=== PATIENT | female | born 1935 | race Caucasian/White ===

== ENCOUNTER 2017-01-24 11:21 | Inpatient (IN) | payer MEDICARE ==
[2017-01-24] MEDS ORDERED: ALBUTEROL SULFATE 2.5 MG/3 ML VIAL.NEB IH ONE (11:25)
[2017-01-24] MEDS ORDERED: ALBUTEROL SULFATE 2.5 MG/0.5 ML VIAL.NEB IH ONE (11:44)
[2017-01-24 11:57] LABS: Hematocrit 45.5 % (37.0-47.0); Hemoglobin 14.1 gm/dL (12.5-16.0); Mean Cell Volume 92.1 fl (78-100); Mean Corpuscular Hemoglobin 28.5 pg (27-31); Mean Platelet Volume 10.4 fl (6.0-9.5); Neutrophil # 9.8 K/mm3 (1.3-6.0); Neutrophil % 77.5 % (42-75.0); Platelet Count 213 K/mm3 (150-450); Red Blood Count 4.94 M/mm3 (4.2-5.4); Red Cell Distribution Width 14.4 % (11.5-14.0); White Blood Count 12.7 K/mm3 (4.0-10.5)
--- NOTE | 2017-01-24 12:05 | ERNOTE ---
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 Exam Limitations: no limitations - Immun/Allergies/Home Medications Immunizations: IMMUNIZATION HX Immunizations Up to Date Yes History of Influenza Vaccine Yes Hx Pneumococcal Vaccination Yes Allergies/Adverse Reactions: Allergies codeine Allergy (Mild, Verified 01/24/17 11:38) Hives FROM PRE-OP ORDER SHEET Penicillins Allergy (Mild, Verified 01/24/17 11:38) Hives FROM PRE-OP ORDER SHEET Home Medications: HOME MEDICATIONS Coenzyme Q10/l-Carnitine [Q-Sorb Co Q-10 Plus 100 mg] 200 mg PO DAILY 06/17/13 [ Last Taken Unknown] Furosemide [Lasix] 80 mg PO DAILY 06/17/13 [Last Taken Unknown] Isosorbide Mononitrate [Imdur] 60 mg PO DAILY 06/17/13 [Last Taken Unknown] Levothyroxine Sodium [Synthroid] 150 mcg PO DAILY 06/17/13 [Last Taken Unknown] Lisinopril [Zestril] 10 mg PO DAILY 06/17/13 [Last Taken Unknown] Metoprolol Tartrate [Lopressor] 75 mg PO BID 06/17/13 [Last Taken Unknown] Nitroglycerin 0.4 mg SL PRN PRN 06/17/13 [Last Taken Unknown] Omeprazole [Prilosec] 40 mg PO DAILY 01/21/14 [Last Taken Unknown] Albuterol Sulfate [Proair Hfa] 8.5 gm IH PRN PRN 01/24/17 [Last Taken Unknown] Albuterol Sulfate [Proair Respiclick] 90 mcg IH Q4H PRN 01/24/17 [Last Taken Unknown] Apixaban [Eliquis] 5 mg PO BID 01/24/17 [Last Taken Unknown] Budesonide [Pulmicort Respules] 2 ml IH BID 01/24/17 [Last Taken Unknown] Ipratropium/Albuterol Sulfate [Iprat-Albut 0.5-3(2.5) mg/3 ml] 3 ml IH QID 01/24 [Last Taken Unknown] PARoxetine HCL [Paxil] 20 mg PO DAILY 01/24/17 [Last Taken Unknown] Sotalol HCl [Betapace] 80 mg PO BID 01/24/17 [Last Taken Unknown] - History of Present Illness Narrative: Pt. comes in with c/o Cough, wheezing, SOB, fevers, and upper midiastinal chest pain for two days and states that she worsened yesterday and is weak today. Pt. denies any prehospital treatment, increased swelling joint pain, dizziness or vision changes. Pt. denies any alleviating or aggravating factors. Review of Systems - Review of Systems Constitutional: Present: weakness, fatigue. Absent: recent illness, fever, chills, malaise EYE: Present: no symptoms reported ENT: Present: sore throat. Absent: nose pain, nose congestion, nasal drainage Respiratory: Present: shortness of breath, cough, wheezing Cardiology: Present: chest pain - mediastinal. Absent: palpitations Gastrointestinal/Abdominal: Present: no symptoms reported. Absent: nausea, vomiting, diarrhea, abdominal pain Genitourinary: Present: no symptoms reported Musculoskeletal: Present: no symptoms reported. Absent: back pain, joint pain Neurological: Present: weakness - generalized. Absent: headache, dizziness/ light-headedness, numbness, tingling All Other Systems: All systems neg except as marked - Patient's Past Medical History Patient History - Cardiac/Respiratory: Coronary Heart Disease, CHF - Social History Smoking Status: Never smoker Have you smoked in the past 12 months: No - Immunizations Immunizations Up to Date: Yes Hx Pneumococcal Vaccination: Yes History of Influenza Vaccine: Yes Physical Exam - Physical Exam General Appearance: Present: wd/wn, alert, no apparent distress Eye Exam: Normal inspection: bilateral, PERRL: bilateral, EOMI: bilateral Ears, Nose, Throat: Present: normal ENT inspection, normal pharynx Neck: Present: normal inspection, nontender. Absent: lymphadenopathy (R), lymphadenopathy (L) Respiratory: Present: chest tenderness - mediastinal, respiratory distress, accessory muscle use, decreased breath sounds - bases, rhonchi - throughout, wheezing - exp BUL Cardiovascular/Chest: Present: regular rate, rhythm, no murmur, normal peripheral pulses Gastrointestinal/Abdominal: Present: normal bowel sounds, nontender Back Exam: Present: normal inspection, normal range of motion, no CVA tenderness , no vertebral tenderness Extremity Exam: Present: normal inspection, non-tender, normal range of motion, no edema Neurological Exam: Present: alert, oriented, normal mood/affect, no motor/ sensory deficits Skin Exam: Present: normal color, warm/dry. Absent: pallor, skin rash ED Progress - Date and Time Seen: Date and Time: 01/24/17 12:50 Discussed case with Rosette Kerry and we will admit pt. to observation - Results and Orders Patient's Lab Results:: I have reviewed the patient's lab results. - Vital Signs Patient's Vital Signs:: I have reviewed the patient's vital signs. Vital Signs: Vital Signs 01/24/17 11:25 Temperature 36.5 C Pulse Rate 67 Respiratory 24 H Rate Blood Pressure 159/72 O2 Sat by Pulse 94 Oximetry - EKG EKG: RBBB, other - SR with no acute changes - X-Ray X-Ray #1 X-Ray: chest Interpretation: Reviewed by me X-ray Comments: Technique: Upright frontal and lateral views of the chest were obtained. Findings: The cardiac silhouette is enlarged, but essentially unchanged. There is been a previous median sternotomy. There is questionable right peritracheal prominence The hilum are with in normal limits. Again seen is linear density in the left mid to lower lung zone and right lung base, which most likely reflects atelectasis or scar. The lung sheriff are clear. I do not see evidence for an infiltrate, effusion or pulmonary edema. IMPRESSION: 1. PREVIOUS MEDIAN STERNOTOMY WITH ASSOCIATED ENLARGED CARDIAC SILHOUETTE, ESSENTIALLY UNCHANGED. 2. QUESTIONABLE RIGHT PERITRACHEAL PROMINENCE; THIS CAN BE REEVALUATED WITH CT SCAN. 3. BILATERAL LINEAR SCARRING, UNCHANGED. 4. NO DEFINABLE ACUTE CARDIOPULMONARY PROCESS Departure Clinical Impression: Tracheobronchitis, Weakness COPD (chronic obstructive pulmonary disease) Qualifiers: COPD type: unspecified COPD Qualified Code(s): J44.9 - Chronic obstructive pulmonary disease, unspecified CHF (congestive heart failure) Qualifiers: Congestive heart failure type: unspecified congestive heart failure type Congestive heart failure chronicity: acute on chronic Qualified Code(s): I50.9 - Heart failure, unspecified UTI (urinary tract infection) Qualifiers: Urinary tract infection type: acute cystitis Hematuria presence: without hematuria Qualified Code(s): N30.00 - Acute cystitis without hematuria - Departure Disposition: [facility] Condition: Fair Referrals: Mic Urrutia MD [Primary Care Provider] -
[2017-01-24 12:06] LABS: Urine Bilirubin Negative (NEGATIVE); Urine Blood Negative /ul (NEGATIVE); Urine Ketone Negative (NEGATIVE); Urine Nitrite Negative (NEGATIVE); Urine Protein 15 mg/dL (NEGATIVE); Urine Urobilinogen Normal (NORMAL)
[2017-01-24 12:13] LABS: Urine Appearance Clear; Urine Color Yellow
[2017-01-24 12:14] LABS: Urine Bacteria None Seen; Urine RBC None Seen /hpf (0-5)
[2017-01-24 12:26] LABS: Troponin I Less than 0.017 ng/ml (0.00-0.10)
[2017-01-24 12:28] LABS: ALT 23 U/L (19-67); AST 18 U/L (0-48); Alkaline Phosphatase * 81 U/L (50-170); Anion Gap 12.2 mmol/L (6.8-13.8); BNP * 1556 pg/mL (5-550); BUN/Creatinine Ratio 28.7 (9.0-21.6); Bilirubin, Total 0.6 mg/dL (0.0-1.1); Blood Urea Nitrogen 35 mg/dL (3-23); Ca. Corrected For Albumin 10.2 mg/dL (8.4-10.2); Calcium * 10.5 mg/dL (7.9-10.9); Carbon Dioxide 30.8 mmol/L (24-32.6); Chloride 102 mmol/L (97-106); Glucose * 123 mg/dL (70-110); Sodium 140 mmol/L (132-142); Total Protein 8.3 gm/dL (6.2-8.2)
--- OUTSIDE RECORDS SUMMARY | 2017-01-24 12:32 | XMS REPORT | Continuity of Care Document ---
:1935 Author Organization [facility] ([facility]) Address [address] [place] [address] Phone [phone] Care Team Providers Name Role Phone AspenshrutiyaminiMic Primary Care Provider [phone] Source Comments This disclosure is being made pursuant to the Care Everywhere program, applicable federal and state laws, and may not contain all informaitonavailable regarding this patient.[facility] ([facility]) Active Allergies and Adverse Reactions Allergen Noted Date Severity Reactions Comments Codeine 11/03/2015 Unknown Penicillins 11/03/2015 Unknown Current Medications Prescription Sig. Disp. Refills Start Date End Date Status coenzyme Q10 200 mg 02/05/2012 Active capsule atorvastatin 20 mg take 1 tablet by 02/02/2014 Active tablet ORAL route MWF. isosorbide take 1 tablet 01/28/2012 Active mononitrate 60 mg CR (60MG) by ORAL tablet route every day in the morning. metoPROLol tartrate take 1 tablet 03/30/2008 Active 50 mg tablet (50MG) by ORAL route 2 times every day with meals. nitroglycerin 0.[address] 1 tablet 07/22/2012 Active SL tablet (0.4MG) by Sublingual route at the first sign of an attack; may repeat every 5 minutes, until relief; if pain persists after a total of 3 tablets in 15 minutes, promptmedical attentionis recommended. omeprazole 40 mg take 1 capsule by 02/02/2014 Active enteric coated oral route every capsule day before a meal. ELIQUIS 5 mg tablet Take 1 tablet by 01/02/2016 Active mouth 2 times daily. levothyroxine 150 Take 1 tablet by 02/07/2016 Active mcg tablet mouth daily. lisinopril 10 mg Take 1 tablet by 12/18/2015 Active tablet mouth daily. sotalol 80 mg tablet Take 80 mg by mouth Active 2 times daily. albuterol 90 Use 2 Puffs by Active mcg/Actuation inhalation every 6 inhaler hours as needed. losartan 25 mg Take 25 mg by mouth Active tablet daily. PARoxetine 20 mg 0 03/28/2016 Active tablet FUROSEMIDE 40 mg TAKE 1 TABLET TWICE 180 tablet 3 06/17/2016 Active tablet DAILY Active Problems Problem Noted Date Palpitations 03/29/2016 CAD in [place] artery 02/13/2016 Overview: Formatting of this note may be different from the original. 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: Cath (EF.70, 100% Proximal LAD, 50% Ostial D1, 80% Distal CX, 90% Ostial OM3, 70% Ostial RCA, 80% Distal RCA, 1 Patent Grafts, 100% VG-D1, 100% VG-PDA, Right Dominant, RCA tortuous) - 12/02/2007 CV SURGERY: CV Surgery (3V CABG: UGALDE-LAD, VG-D1, VG-PDA) -1992 CAD (coronary artery disease), autologous vein bypass graft 02/13/2016 Essential hypertension 02/13/2016 Mixed hyperlipidemia 02/13/2016 Overview: Intolerant of statins Statin intolerance 02/13/2016 Typical atrial flutter 02/13/2016 Overview: S/P unsuccessful ablation attempt Social History Tobacco Use Types Packs/Day Years Used Date Never Smoker Last Filed Vital Signs Vital Sign Reading Time Taken Blood Pressure 110/36 05/03/2016 1:54 PM CDT Pulse 52 05/03/2016 1:54 PM CDT Temperature - - Respiratory Rate - - Height 1.499 m (4' 11") 05/03/2016 1:54 PM CDT Weight 98.4 kg (216 lb 14.9 oz) 05/03/2016 1:54 PM CDT Body Mass Index 43.79 05/03/2016 1:54 PM CDT Oxygen Saturation - - Plan of Care Date Type Specialty Providers Description 04/08/2017 Appointment Heart and Vascular Rocael Kim MD Chief Comp: Patient [address] [place] [address] Visit [phone] (Fax) Health Maintenance Due Date Last Done Comments Hepatitis B Vaccine (1 of 3 - Primary Series) 1935 Tdap Vaccine 1945 Lipid Disorder Screening 1952 Td Vaccine 1952 Colonoscopy 12/21/1984 Zoster Vaccine 1994 Osteoporosis Screening (DXA Bone Density) 12/23/1999 Pneumococcal Vaccine (1 of 2 - PCV13) 12/23/1999 Influenza Vaccine: Seasonal Completed Results from Last 3 Months Not on file
[2017-01-24] MEDS ORDERED: NORMAL SALINE 1,000 ML IV ONE (12:36)
[2017-01-24] MEDS ORDERED: LEVOFLOXACIN/D5W 750 MG/150 ML BAG IV ONE (12:36)
[2017-01-24] MEDS ORDERED: FUROSEMIDE 10 MG/ML VIAL IV ONE ×2 (12:36→16:10)
[2017-01-24] MEDS ORDERED: METHYLPREDNISOLONE SOD SUCC/PF 40 MG/ML VIAL IV ONE (12:37)
[2017-01-24] MEDS ORDERED: FUROSEMIDE 10 MG/ML VIAL ONE (12:50)
[2017-01-24] MEDS ORDERED: METHYLPREDNISOLONE SOD SUCC/PF 40 MG/ML VIAL ONE (12:50)
--- OUTSIDE RECORDS SUMMARY | 2017-01-24 13:03 | XMS REPORT | Continuity of Care Document ---
:1935 Author Organization [facility] ([facility]) Address [address] [place] [address] Phone [phone] Care Team Providers Name Role Phone AspenshrutiyaminiMic Primary Care Provider [phone] Source Comments This disclosure is being made pursuant to the Care Everywhere program, applicable federal and state laws, and may not contain all informaitonavailable regarding this patient.[facility] ([facility]) Active Allergies and Adverse Reactions [...] Problem Noted Date Palpitations 03/29/2016 CAD in [place] artery 02/13/2016 Overview: Formatting of this note may be different from the original. 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
[2017-01-24] MEDS ORDERED: METHYLPREDNISOLONE SOD SUCC 80 MG in WATER FOR INJ.,BACTERIOSTATIC 0 ML IV SCH (13:15)
[2017-01-24] MEDS ORDERED: ALBUTEROL SULFATE/IPRATROPIUM 3 ML NEBU IH SCH (13:15)
--- NOTE | 2017-01-24 14:06 | OR ---
Anesthesia Procedure Note - Anesthesia Procedure Note Date of Service: 01/24/17 Narrative: Vital Signs - Last Taken Temp 36.5 C 01/24/17 11:25 Pulse 73 01/24/17 13:54 Resp 19 01/24/17 12:59 BP 165/79 01/24/17 13:54 Pulse Ox 95 01/24/17 12:59 O2 Oxygen Delivery Method Room Air 01/24/17 14:02 ANESTHESIA PROCEDURE NOTE Date of Procedure: 01/24/2017 Time of procedure: 1330. Performed by: DEV August CRNA, MSN Preprocedure diagnosis: Congestive heart failure, lack of venous access. Post procedure diagnosis: Same. Procedure: Venipuncture for IV access. Indications: Ultrasound-guided IV insertion. Findings: See below. Details of the procedure: I was called to the emergency department station 3 for a patient in congestive heart failure who, after multiple attempts, does not have venous access for treatment. An initial scan with the ultrasound showed a viable vein in the right antecubital area. The right arm was then cleaned and prepped with Betadine and alcohol, 0.1 mL of 1% lidocaine solution was injected at the intended IV site. Using ultrasound guidance with sterile ultrasound jelly, the vein was entered with a #20-gauge IV catheter. Catheter was then flushed with saline solution and secured in place. See radiology/ ultrasound report for images. EBL: Minimal. Fluids: N/A. Specimen: N/A. Post procedure condition: The patient tolerated the procedure well. No complications were noted. Thank you for this consultation. Yang Naranjo CRNA, ARNP, MSN 01/24/17 14:06
--- NOTE | 2017-01-24 14:39 | OR ---
Anesthesia Procedure Note - Anesthesia Procedure Note Date of Service: 01/24/17 Narrative: Vital Signs - Last Taken Temp 36.5 C 01/24/17 11:25 Pulse 77 01/24/17 14:05 Resp 16 01/24/17 14:05 BP 165/79 01/24/17 14:05 Pulse Ox 95 01/24/17 14:05 O2 Oxygen Delivery Method Room Air 01/24/17 14:35 ANESTHESIA PROCEDURE NOTE Date of Procedure: 01/24/2017 Time of procedure: 1415. Performed by: Yang Naranjo CRNA, PHOTOENGRAVING PROOFER, MSN Preprocedure diagnosis: Congestive heart failure, lack of IV access. Post procedure diagnosis: Same. Procedure: Venipuncture for IV access. Indications: Ms. Lorenzana is being admitted for congestive heart failure. After several previous attempts at venous access I was requested to start an IV. A # 20-gauge IV was started in the right antecubital with ultrasound guidance and fluid in the medication had been given through that IV however on the most recent flash the patient complained of severe pain which has somewhat subsided. On aspiration attempts no blood was returned. The procedure and risks were explained to her and the left antecubital was then prepped with chlorhexidine. Findings: See below. Details of the procedure: The patient was prepped with chlorhexidine, 0.1 mL of 1% lidocaine solution was injected at the intended IV site. Under ultrasound guidance the left antecubital was cannulated with a 20-gauge IV catheter, flushed and secured in place. The catheter was then once again flushed without any resistance or issues with untoward feeling by the patient. EBL: Minimal. Fluids: N/A. Specimen: N/A. Post procedure condition: The patient tolerated the procedure well. No complications were noted. Thank you for this consultation. Yang Naranjo CRNA, PHOTOENGRAVING PROOFER, MSN
--- NOTE | 2017-01-24 16:34 | HP ---
Chief Complaint - Chief Complaint Date of Service: 01/24/17 Time of Service: 16:08 Chief Complaint: cough/sob/wheezing History of Present Illness: Kina Lorenzana, is an 81-year-old white female, with previous medical history of coronary artery disease status post CABG, hypertension, hyperlipidemia, hypothyroidism, COPD, atrial fibrillation, who 5 days prior to admission started having cough associated with mild shortness of breath. One day prior to admission her shortness of breath got worst and her cough was associated with brownish yellowish phlegm. She denied fever and chills with it but admits to wheezing. She denied any paroxysmal nocturnal dyspnea or orthopnea. She did have a little bit of weight gain however did not notice any edema. She went to the [facility] today and was sent to the emergency room where she patient's chest x- ray showed no acute cardiopulmonary findings enlarged heart, right paratracheal prominence of uncertain etiology. Her EKG showed normal sinus rhythm came. Her white blood cell count was elevated at 12.2. Her urinalysis showed urinary tract infection. She was admitted for COPD exacerbation. - Patient's Past Medical History Patient History - Medical: Cataracts, Depression, Hypothyroidism Patient History - Cardiac/Respiratory: Atrial Fibrillation, Coronary Heart Disease, CHF, COPD, Hyperlipidemia Patient History - Cancer: No Hx of Cancer Patient History - Surgical Procedures: Noncontributory Patient History - Other: None - Family History Mother Family History - Medical: , History Unknown Family History - Cardiac/Respiratory: No pertinent hx, History Unknown Family History - Cancer: No pertinent family hx, History Unknown Father Family History - Medical: , Diabetes Type 2 Family History - Cardiac/Respiratory: No pertinent hx, History Unknown Family History - Cancer: No pertinent family hx, History Unknown - Social History Living Situations: spouse Abuse History: No History of abuse Psych History: Hx of Depression Smoking Status: Former smoker Have you smoked in the past 12 months: No Do you dip or chew tobacco: No Patient requests Smoking Cessation Consult: No Initiate information on Smoking Cessation: No Alcohol Use: none Drug Use: none - Immunizations Immunizations Up to Date: Yes Hx Pneumococcal Vaccination: Yes History of Influenza Vaccine: Yes Review Of Systems (GEN) - Review of Systems Generalized/Overall Review: Present: Weight gain. Absent: Chills, Fever EENTM: Present: No Symptoms Reported Respiratory: Present: Cough, Shortness of Breath, Wheezing. Absent: Orthopnea Cardiac: Absent: Chest Pain, Edema, Palpitations Abdominal: Absent: Nausea, Vomiting Genitourinary: Absent: Urgency, Frequency Musculoskeletal: Present: Joint Pain Immunizations: IMMUNIZATION HX Immunizations Up to Date Yes History of Influenza Vaccine Yes Hx Pneumococcal Vaccination Yes Allergies/Adverse Reactions: Allergies Allergy/AdvReac Type Severity Reaction Status Date / Time codeine Allergy Mild Hives Verified 01/24/17 11:38 Penicillins Allergy Mild Hives Verified 01/24/17 11:38 Home Medications: HOME MEDICATIONS Coenzyme Q10/l-Carnitine [Q-Sorb Co Q-10 Plus 100 mg] 200 mg PO DAILY 06/17/13 [ Last Taken Unknown] Furosemide [Lasix] 80 mg PO DAILY 06/17/13 [Last Taken Unknown] Isosorbide Mononitrate [Imdur] 60 mg PO DAILY 06/17/13 [Last Taken Unknown] Levothyroxine Sodium [Synthroid] 175 mcg PO DAILY 06/17/13 [Last Taken Unknown] Lisinopril [Zestril] 10 mg PO DAILY 06/17/13 [Last Taken Unknown] Metoprolol Tartrate [Lopressor] 75 mg PO BID 06/17/13 [Last Taken Unknown] Nitroglycerin 0.4 mg SL PRN PRN 06/17/13 [Last Taken Unknown] Omeprazole [Prilosec] 40 mg PO DAILY 01/21/14 [Last Taken Unknown] Albuterol Sulfate [Proair Hfa] 8.5 gm IH PRN PRN 01/24/17 [Last Taken Unknown] Albuterol Sulfate [Proair Respiclick] 90 mcg IH Q4H PRN 01/24/17 [Last Taken Unknown] Apixaban [Eliquis] 5 mg PO BID 01/24/17 [Last Taken Unknown] Ipratropium/Albuterol Sulfate [Iprat-Albut 0.5-3(2.5) mg/3 ml] 3 ml IH QID 01/24 [Last Taken Unknown] PARoxetine HCL [Paxil] 20 mg PO DAILY 01/24/17 [Last Taken Unknown] Sotalol HCl [Betapace] 80 mg PO BID 01/24/17 [Last Taken Unknown] Exam - Exam Vital Signs: Vital Signs - Last Taken Temp 37.1 C 01/24/17 15:47 Pulse 80 05/05/17 15:47 Resp 22 H 01/24/17 15:47 BP 173/68 01/24/17 15:47 Pulse Ox 94 01/24/17 15:47 Constitutional: Present: Alert, Oriented x3, Cooperative ENT Exam: Present: hearing grossly normal Eye Exam: bilateral eye: normal inspection, PERRL, EOMI Neck: Present: supple Back Exam: Present: no CVA tenderness Breasts: Present: Exam deferred Respiratory: Present: decreased breath sounds, crackles, wheezing Cardiovascular/Chest: Present: regular rate, rhythm, no JVD, systolic murmur Abdomen: Present: Normal bowel sounds, nontender Extremity: Present: no pedal edema, no calf tenderness Diagnostic Studies: Laboratory Results WBC 12.7 K/mm3 (4.0-10.5) H 01/24/17 11:50 RBC 4.94 M/mm3 (4.2-5.4) 01/24/17 11:50 Hgb 14.1 gm/dL (12.5-16.0) 01/24/17 11:50 Hct 45.5 % (37.0-47.0) 01/24/17 11:50 MCV 92.1 fl (78-100) 01/24/17 11:50 MCH 28.5 pg (27-31) 01/24/17 11:50 MCHC 31.0 g/dl (32-36) L 01/24/17 11:50 RDW 14.4 % (11.5-14.0) H 01/24/17 11:50 Plt Count 213 K/mm3 (150-450) 01/24/17 11:50 MPV 10.4 fl (6.0-9.5) H 01/24/17 11:50 Immature Gran % (Auto) 0.30 % (0.001-0.429) 01/24/17 11:50 Immature Gran # (Auto) 0.04 K/mm3 (0.000-0.0310) H 01/24/17 11:50 Neutrophils % 77.5 % (42-75.0) H 01/24/17 11:50 Lymphocytes % 14.2 % (20-51) L 01/24/17 11:50 Monocytes % 6.3 % (0.0-9) 01/24/17 11:50 Eosinophils % 1.4 % (0.0-3.0) 01/24/17 11:50 Basophils % 0.3 % (0.0-1.0) 01/24/17 11:50 Nucleated RBC % 0.0 k/mm3 (0-1) 01/24/17 11:50 Neutrophils # 9.8 K/mm3 (1.3-6.0) H 01/24/17 11:50 Lymphocytes # 1.8 k/mm3 (1.5-3.5) 01/24/17 11:50 Monocytes # 0.8 k/mm3 (0.0-1.0) 01/24/17 11:50 Eosinophils # 0.2 k/mm3 (0.0-0.7) 01/24/17 11:50 Absolute Basophils 0.0 k/mm3 (0.0-0.1) 01/24/17 11:50 Sodium 140 mmol/L (132-142) 01/24/17 11:50 Plasma Sodium 140 mmol/L (130-142) 01/24/17 11:50 Potassium 5.0 mmol/L (3.4-4.6) H 01/24/17 11:50 Chloride 102 mmol/L (97-106) 01/24/17 11:50 Carbon Dioxide 30.8 mmol/L (24-32.6) 01/24/17 11:50 Anion Gap 12.2 mmol/L (6.8-13.8) 01/24/17 11:50 BUN 35 mg/dL (3-23) H 01/24/17 11:50 Creatinine 1.22 mg/dL (0.4-1.4) 01/24/17 11:50 Est GFR (Non-Af Amer) 45 mL/min (60-130) L 01/24/17 11:50 BUN/Creatinine Ratio 28.7 (9.0-21.6) H 01/24/17 11:50 Random Glucose 123 mg/dL (70-110) H 01/24/17 11:50 Calcium 10.5 mg/dL (7.9-10.9) 01/24/17 11:50 Calcium Adj for Albumin 10.2 mg/dL (8.4-10.2) 01/24/17 11:50 Total Bilirubin 0.6 mg/dL (0.0-1.1) 01/24/17 11:50 AST 18 U/L (0-48) 01/24/17 11:50 ALT 23 U/L (19-67) 01/24/17 11:50 Alkaline Phosphatase 81 U/L (50-170) 01/24/17 11:50 Troponin I Less than 0.017 ng/ml (0.00-0.10) 01/24/17 11:50 B-Natriuretic Peptide 1556 pg/mL (5-550) H 01/24/17 11:50 Total Protein 8.3 gm/dL (6.2-8.2) H 01/24/17 11:50 Albumin 4.0 gm/dl (3.4-5.0) 01/24/17 11:50 Urine Color Yellow 01/24/17 11:34 Urine Appearance Clear 01/24/17 11:34 Urine pH 6.0 pH (5.0-7.0) 01/24/17 11:34 Ur Specific [place] 1.020 SP.GR. (1.005-1.010) 01/24/17 11:34 Urine Protein 15 mg/dL (NEGATIVE) H 01/24/17 11:34 Urine Glucose (UA) Negative mg/dL (NEGATIVE) 01/24/17 11:34 Urine Ketones Negative mg/dL (NEGATIVE) 01/24/17 11:34 Urine Blood Negative /ul (NEGATIVE) 01/24/17 11:34 Urine Nitrate Negative (NEGATIVE) 01/24/17 11:34 Urine Bilirubin Negative mg/dl (NEGATIVE) 01/24/17 11:34 Prot Sulfosalicylic Acd Negative mg/dL (0) 01/24/17 11:34 Urine Urobilinogen Normal EU/dl (NORMAL) 01/24/17 11:34 Ur Leukocyte Esterase 75 /ul (NEGATIVE) H 01/24/17 11:34 Urine RBC None seen /hpf (0-5) 01/24/17 11:34 Urine WBC 5-10 /hpf (0-5) H 01/24/17 11:34 Ur Epithelial Cells 0-5 /hpf (0-5) 01/24/17 11:34 Urine Bacteria None seen (NONE) 01/24/17 11:34 Urine Culture Comments Culture to follow 01/24/17 11:34 Assessment/Plan - Assessment/Plan (1) COPD exacerbation Assessment: will continue with IV antibiotics, IV solumedrol, and breathing treatment. likely acute bronchitis. Problem: Acute (2) UTI (urinary tract infection) Assessment: continue with antibiotic. await C & S Problem: Acute Qualifiers: Urinary tract infection type: acute cystitis Hematuria presence: without hematuria Qualified Code(s): N30.00 - Acute cystitis without hematuria (3) COPD (chronic obstructive pulmonary disease) Problem: Chronic Qualifiers: COPD type: unspecified COPD Qualified Code(s): J44.9 - Chronic obstructive pulmonary disease, unspecified (4) Elevated brain natriuretic peptide (BNP) level Problem: Acute (5) CAD (coronary artery disease) Problem: Chronic Qualifiers: Coronary Disease-Associated Artery/Lesion type: bypass graft [place] vs. transplanted heart: [place] heart Associated angina: without angina Qualified Code(s): I25.810 - Atherosclerosis of coronary artery bypass graft(s) without angina pectoris (6) Hypertension Problem: Chronic Qualifiers: Hypertension type: essential hypertension Qualified Code(s): I10 - Essential (primary) hypertension (7) Hyperlipidemia Problem: Chronic Qualifiers: Hyperlipidemia type: mixed hyperlipidemia Qualified Code(s): E78.2 - Mixed hyperlipidemia (8) Hypothyroidism (acquired) Problem: Chronic (9) Obesity Problem: Acute (10) Afib Problem: Chronic Qualifiers: Atrial fibrillation type: paroxysmal Qualified Code(s): I48.0 - Paroxysmal atrial fibrillation
[2017-01-24] MEDS ORDERED: NITROGLYCERIN 0.4 MG/TAB BTL SL PRN (16:35)
[2017-01-24] MEDS ORDERED: NON-FORMULARY 1 DOSE DOSE (Albuterol Sulfate [Proair Respiclick] 90 MCG) IH PRN (16:40)
[2017-01-24] MEDS: ALBUTEROL SULFATE/IPRATROPIUM 3 ML NEBU IH SCH (18:21)
[2017-01-24] MEDS: METHYLPREDNISOLONE SOD SUCC 80 MG in WATER FOR INJ.,BACTERIOSTATIC 0 ML IV SCH (18:57)
[2017-01-24] MEDS: METOPROLOL TARTRATE 25 MG TABLET PO SCH (20:21)
[2017-01-24] MEDS: SOTALOL HCL 80 MG TABLET PO SCH (20:21)
[2017-01-24] MEDS: APIXABAN 2.5 MG TABLET PO SCH (20:22)
[2017-01-24] MEDS ORDERED: FUROSEMIDE 10 MG/ML VIAL IV SCH (21:00)
[2017-01-24] MEDS ORDERED: APIXABAN 5 MG PO SCH (21:00)
[2017-01-25] MEDS: ALBUTEROL SULFATE/IPRATROPIUM 3 ML NEBU IH SCH ×4 (00:41→18:20)
[2017-01-25] MEDS: METHYLPREDNISOLONE SOD SUCC 80 MG in WATER FOR INJ.,BACTERIOSTATIC 0 ML IV SCH ×4 (01:06→19:07)
[2017-01-25] MEDS: PANTOPRAZOLE SODIUM 40 MG TABLET.EC PO SCH (06:37)
[2017-01-25] MEDS: LEVOTHYROXINE SODIUM 175 MCG TABLET PO SCH (06:37)
[2017-01-25] MEDS: SOTALOL HCL 80 MG TABLET PO SCH ×2 (08:14→21:25)
[2017-01-25] MEDS: ISOSORBIDE MONONITRATE 60 MG TAB.SR.24H PO SCH (08:14)
[2017-01-25] MEDS: FUROSEMIDE 80 MG TABLET PO SCH (08:14)
[2017-01-25] MEDS: METOPROLOL TARTRATE 25 MG TABLET PO SCH ×2 (08:14→21:26)
[2017-01-25] MEDS: APIXABAN 2.5 MG TABLET PO SCH ×2 (08:14→21:25)
[2017-01-25] MEDS: LISINOPRIL 10 MG TABLET PO SCH (08:15)
[2017-01-25] MEDS: PARoxetine HCL 20 MG TABLET PO SCH (08:15)
[2017-01-25 08:33] LABS: Hematocrit 44.7 % (37.0-47.0); Hemoglobin 14.3 gm/dL (12.5-16.0); Mean Cell Volume 89.6 fl (78-100); Mean Corpuscular Hemoglobin 28.7 pg (27-31); Mean Platelet Volume 10.5 fl (6.0-9.5); Neutrophil # 13.8 K/mm3 (1.3-6.0); Neutrophil % 91.1 % (42-75.0); Platelet Count 202 K/mm3 (150-450); Red Blood Count 4.99 M/mm3 (4.2-5.4); Red Cell Distribution Width 14.2 % (11.5-14.0); White Blood Count 15.2 K/mm3 (4.0-10.5)
[2017-01-25 08:42] LABS: Anion Gap 11.9 mmol/L (6.8-13.8); BUN/Creatinine Ratio 27.9 (9.0-21.6); Calcium * 10.5 mg/dL (7.9-10.9); Carbon Dioxide 31.3 mmol/L (24-32.6); Estimated Creat Clear 26.6; Potassium 4.2 mmol/L (3.4-4.6)
[2017-01-25] MEDS ORDERED: OMEPRAZOLE 40 MG PO SCH (09:00)
--- NOTE | 2017-01-25 09:44 | PN ---
Subjective - Date and Time Seen Date: 01/25/17 Time: 09:38 Subjective Narrative: Still feels very tight. Audibly wheezing. Objective - Review of Systems Generalized/Overall Review: Denies: Chills, Fever EENTM: Reports: No Symptoms Reported Respiratory: Reports: Cough, Shortness of Breath, Wheezing Cardiac: Denies: Chest Pain, Edema, Palpitations Abdominal: Denies: Nausea, Vomiting Genitourinary Symptoms: Denies: Urgency, Frequency Musculoskeletal Complaints: Reports: Joint Pain - Vitals Vitals: Last Vital Signs Temp 36.6 C 01/25/17 08:00 Pulse 64 01/25/17 08:15 Resp 19 01/25/17 08:00 BP 135/63 01/25/17 08:15 Pulse Ox 90 01/25/17 08:00 - Abnormal Lab Findings Abnormal Lab Findings: Abnormal Lab Results 01/25/17 01/25/17 Range/Units 08:21 08:21 WBC 15.2 H (4.0-10.5) K/mm3 RDW 14.2 H (11.5-14.0) % MPV 10.5 H (6.0-9.5) fl Immature Gran % (Auto) 0.60 H (0.001-0.429) % Immature Gran # (Auto) 0.09 H (0.000-0.0310) K/mm3 Neutrophils % 91.1 H (42-75.0) % Lymphocytes % 6.6 L (20-51) % Neutrophils # 13.8 H (1.3-6.0) K/mm3 Lymphocytes # 1.0 L (1.5-3.5) k/mm3 Plasma Sodium 143 H (130-142) mmol/L BUN 31 H (3-23) mg/dL Est GFR (Non-Af Amer) 50 L (60-130) mL/min BUN/Creatinine Ratio 27.9 H (9.0-21.6) Random Glucose 194 H D (70-110) mg/dL - Exam Constitutional: Present: Alert, Oriented x3, Cooperative ENT Exam: Present: hearing grossly normal Neck: Present: supple Breasts: Present: Exam deferred Respiratory: Present: decreased breath sounds, crackles, wheezing Cardiovascular/Chest: Present: regular rate, rhythm, no JVD, no murmur Abdomen: Present: Normal bowel sounds, soft, nontender, nondistended Extremity: Present: no pedal edema, no calf tenderness Assessment/Plan - Problems/Diagnosis (1) COPD exacerbation Problem: Acute Narrative: continue with IV antibiotics, IV solumedrol, breathing treatments. (2) UTI (urinary tract infection) Problem: Acute Qualifiers: Urinary tract infection type: acute cystitis Hematuria presence: without hematuria Qualified Code(s): N30.00 - Acute cystitis without hematuria Narrative: continue with IV antibiotics. (3) COPD (chronic obstructive pulmonary disease) Problem: Chronic Qualifiers: COPD type: unspecified COPD Qualified Code(s): J44.9 - Chronic obstructive pulmonary disease, unspecified (4) Elevated brain natriuretic peptide (BNP) level Problem: Acute (5) CAD (coronary artery disease) Problem: Chronic Qualifiers: Coronary Disease-Associated Artery/Lesion type: bypass graft [place] vs. transplanted heart: [place] heart Associated angina: without angina Qualified Code(s): I25.810 - Atherosclerosis of coronary artery bypass graft(s) without angina pectoris (6) Hypertension Problem: Chronic Qualifiers: Hypertension type: essential hypertension Qualified Code(s): I10 - Essential (primary) hypertension (7) Hyperlipidemia Problem: Chronic Qualifiers: Hyperlipidemia type: mixed hyperlipidemia Qualified Code(s): E78.2 - Mixed hyperlipidemia (8) Hypothyroidism (acquired) Problem: Chronic (9) Obesity Problem: Acute (10) Afib Problem: Chronic Qualifiers: Atrial fibrillation type: paroxysmal Qualified Code(s): I48.0 - Paroxysmal atrial fibrillation
[2017-01-25] MEDS ORDERED: LEVOFLOXACIN/D5W 750 MG/150 ML BAG IV SCH (13:15)
[2017-01-25] MEDS ORDERED: LORazepam 0.5 MG TABLET PO ONE (20:10)
[2017-01-25] MEDS ORDERED: LORazepam 0.5 MG TABLET ONE (21:23)
[2017-01-26] MEDS: ALBUTEROL SULFATE/IPRATROPIUM 3 ML NEBU IH SCH ×4 (00:10→18:24)
[2017-01-26] MEDS: METHYLPREDNISOLONE SOD SUCC 80 MG in WATER FOR INJ.,BACTERIOSTATIC 0 ML IV SCH ×2 (01:16→07:34)
[2017-01-26] MEDS: PANTOPRAZOLE SODIUM 40 MG TABLET.EC PO SCH (07:33)
[2017-01-26] MEDS: LEVOTHYROXINE SODIUM 175 MCG TABLET PO SCH (07:33)
[2017-01-26 08:29] LABS: Hematocrit 42.4 % (37.0-47.0); Hemoglobin 13.4 gm/dL (12.5-16.0); Mean Corpuscular Hemoglobin 28.8 pg (27-31); Mean Corpuscular Hgb Conc 31.6 g/dl (32-36); Mean Platelet Volume 10.7 fl (6.0-9.5); Neutrophil # 14.8 K/mm3 (1.3-6.0); Neutrophil % 88.6 % (42-75.0); Platelet Count 226 K/mm3 (150-450); Red Blood Count 4.66 M/mm3 (4.2-5.4); Red Cell Distribution Width 14.6 % (11.5-14.0); White Blood Count 16.7 K/mm3 (4.0-10.5)
[2017-01-26 08:38] LABS: Anion Gap 15.5 mmol/L (6.8-13.8); BUN/Creatinine Ratio 32.8 (9.0-21.6); Calcium * 10.1 mg/dL (7.9-10.9); Carbon Dioxide 29.9 mmol/L (24-32.6); Estimated Creat Clear 23.7; Potassium 4.4 mmol/L (3.4-4.6)
[2017-01-26] MEDS: APIXABAN 2.5 MG TABLET PO SCH ×2 (09:16→20:58)
[2017-01-26] MEDS: METOPROLOL TARTRATE 25 MG TABLET PO SCH ×2 (09:16→20:59)
[2017-01-26] MEDS: LISINOPRIL 10 MG TABLET PO SCH (09:17)
[2017-01-26] MEDS: FUROSEMIDE 80 MG TABLET PO SCH (09:17)
[2017-01-26] MEDS: ISOSORBIDE MONONITRATE 60 MG TAB.SR.24H PO SCH (09:17)
[2017-01-26] MEDS: SOTALOL HCL 80 MG TABLET PO SCH ×2 (09:17→20:57)
[2017-01-26] MEDS: PARoxetine HCL 20 MG TABLET PO SCH (09:17)
[2017-01-26] MEDS: ACETAMINOPHEN 325 MG TABLET PO PRN (09:21)
--- NOTE | 2017-01-26 09:40 | PN ---
Subjective - Date and Time Seen Date: 01/26/17 Time: 09:27 Subjective Narrative: Her abdominal muscles gets painful whenever she coughs. She still is SOB but better. Objective - Review of Systems Generalized/Overall Review: Reports: Weakness. Denies: Chills, Fever EENTM: Reports: No Symptoms Reported Respiratory: Reports: Cough, Shortness of Breath, Wheezing Cardiac: Denies: Chest Pain, Edema, Palpitations Abdominal: Reports: Abdominal Pain. Denies: Nausea, Vomiting Genitourinary Symptoms: Denies: Urgency, Frequency Musculoskeletal Complaints: Reports: Joint Pain - Vitals Vitals: Last Vital Signs Temp 36.8 C 01/26/17 08:00 Pulse 80 01/26/17 09:17 Resp 21 H 01/26/17 08:00 BP 142/55 01/26/17 09:17 Pulse Ox 94 01/26/17 08:00 - Abnormal Lab Findings Abnormal Lab Findings: Abnormal Lab Results 01/26/17 01/26/17 Range/Units 08:22 08:22 WBC 16.7 H (4.0-10.5) K/mm3 MCHC 31.6 L (32-36) g/dl RDW 14.6 H (11.5-14.0) % MPV 10.7 H (6.0-9.5) fl Immature Gran % (Auto) 1.00 H (0.001-0.429) % Immature Gran # (Auto) 0.16 H (0.000-0.0310) K/mm3 Neutrophils % 88.6 H (42-75.0) % Lymphocytes % 7.6 L (20-51) % Neutrophils # 14.8 H (1.3-6.0) K/mm3 Lymphocytes # 1.3 L (1.5-3.5) k/mm3 Plasma Sodium 144 H (130-142) mmol/L Anion Gap 15.5 H (6.8-13.8) mmol/L BUN 41 H (3-23) mg/dL Est GFR (Non-Af Amer) 44 L (60-130) mL/min BUN/Creatinine Ratio 32.8 H (9.0-21.6) Random Glucose 225 H (70-110) mg/dL - Exam Constitutional: Present: Oriented x3, Cooperative ENT Exam: Present: hearing grossly normal Neck: Present: supple Breasts: Present: Exam deferred Respiratory: Present: decreased breath sounds, crackles - siginificantly less, wheezing Cardiovascular/Chest: Present: regular rate, rhythm, no JVD, systolic murmur Extremity: Present: no calf tenderness, pedal edema Assessment/Plan - Problems/Diagnosis (1) COPD exacerbation Problem: Acute Narrative: likely acute bronchitis. continue with present management. (2) UTI (urinary tract infection) Problem: Acute Qualifiers: Urinary tract infection type: acute cystitis Hematuria presence: without hematuria Qualified Code(s): N30.00 - Acute cystitis without hematuria Narrative: NG on UCS . (3) COPD (chronic obstructive pulmonary disease) Problem: Chronic Qualifiers: COPD type: unspecified COPD Qualified Code(s): J44.9 - Chronic obstructive pulmonary disease, unspecified (4) Elevated brain natriuretic peptide (BNP) level Problem: Acute (5) CAD (coronary artery disease) Problem: Chronic Qualifiers: Coronary Disease-Associated Artery/Lesion type: bypass graft [place] vs. transplanted heart: [place] heart Associated angina: without angina Qualified Code(s): I25.810 - Atherosclerosis of coronary artery bypass graft(s) without angina pectoris (6) Hypertension Problem: Chronic Qualifiers: Hypertension type: essential hypertension Qualified Code(s): I10 - Essential (primary) hypertension (7) Hyperlipidemia Problem: Chronic Qualifiers: Hyperlipidemia type: mixed hyperlipidemia Qualified Code(s): E78.2 - Mixed hyperlipidemia (8) Hypothyroidism (acquired) Problem: Chronic (9) Obesity Problem: Acute (10) Afib Problem: Chronic Qualifiers: Atrial fibrillation type: paroxysmal Qualified Code(s): I48.0 - Paroxysmal atrial fibrillation (11) Leukocytosis Problem: Acute Qualifiers: Leukocytosis type: unspecified Qualified Code(s): D72.829 - Elevated white blood cell count, unspecified Narrative: due to steroids and bronchitis.
[2017-01-26] MEDS: LEVOFLOXACIN/D5W 750 MG/150 ML BAG IV SCH (12:19)
[2017-01-26] MEDS: METHYLPREDNISOLONE SOD SUCC 60 MG in WATER FOR INJ.,BACTERIOSTATIC 0 ML IV SCH ×2 (13:46→18:54)
[2017-01-26] MEDS ORDERED: LEVOFLOXACIN/D5W 500 MG/100 ML BAG IV SCH (14:00)
[2017-01-27] MEDS: ALBUTEROL SULFATE/IPRATROPIUM 3 ML NEBU IH SCH ×4 (00:11→18:13)
[2017-01-27] MEDS: METHYLPREDNISOLONE SOD SUCC 60 MG in WATER FOR INJ.,BACTERIOSTATIC 0 ML IV SCH ×2 (00:34→07:32)
[2017-01-27] MEDS: PANTOPRAZOLE SODIUM 40 MG TABLET.EC PO SCH (07:32)
[2017-01-27] MEDS: LEVOTHYROXINE SODIUM 175 MCG TABLET PO SCH (07:32)
--- NOTE | 2017-01-27 08:38 | PN ---
Subjective - Date and Time Seen Date: 01/27/17 Time: 08:35 Subjective Narrative: Feels better but SOB with ambulation. Less wheezy. Objective - Review of Systems Generalized/Overall Review: Denies: Weakness, Chills, Fever EENTM: Reports: No Symptoms Reported Respiratory: Reports: Cough, Shortness of Breath, Wheezing Cardiac: Denies: Chest Pain, Edema, Palpitations Abdominal: Denies: Nausea, Vomiting Genitourinary Symptoms: Denies: Urgency, Frequency Musculoskeletal Complaints: Reports: Joint Pain - Vitals Vitals: Last Vital Signs Temp 36.8 C 01/27/17 07:25 Pulse 63 01/27/17 07:25 Resp 20 01/27/17 07:25 BP 178/73 01/27/17 07:25 Pulse Ox 96 01/27/17 07:25 - Abnormal Lab Findings Abnormal Lab Findings: Abnormal Lab Results 01/26/17 Range/Units 08:22 Plasma Sodium 144 H (130-142) mmol/L Anion Gap 15.5 H (6.8-13.8) mmol/L BUN 41 H (3-23) mg/dL Est GFR (Non-Af Amer) 44 L (60-130) mL/min BUN/Creatinine Ratio 32.8 H (9.0-21.6) Random Glucose 225 H (70-110) mg/dL - Exam Constitutional: Present: Alert, Oriented x3, Cooperative ENT Exam: Present: hearing grossly normal Neck: Present: supple Respiratory: Present: decreased breath sounds, crackles, wheezing Cardiovascular/Chest: Present: regular rate, rhythm, no JVD, systolic murmur Abdomen: Present: Normal bowel sounds, soft, nontender, nondistended Extremity: Present: no pedal edema, no calf tenderness Assessment/Plan - Problems/Diagnosis (1) COPD exacerbation Problem: Acute Narrative: likely Acute bronchitis. follow up CXR. will swithc to oral prednisone. Cotnninue IV antibiotics. (2) UTI (urinary tract infection) Problem: Acute Qualifiers: Urinary tract infection type: acute cystitis Hematuria presence: without hematuria Qualified Code(s): N30.00 - Acute cystitis without hematuria Narrative: no Growth on UCS. (3) COPD (chronic obstructive pulmonary disease) Problem: Chronic Qualifiers: COPD type: unspecified COPD Qualified Code(s): J44.9 - Chronic obstructive pulmonary disease, unspecified (4) Elevated brain natriuretic peptide (BNP) level Problem: Acute (5) CAD (coronary artery disease) Problem: Chronic Qualifiers: Coronary Disease-Associated Artery/Lesion type: bypass graft [place] vs. transplanted heart: [place] heart Associated angina: without angina Qualified Code(s): I25.810 - Atherosclerosis of coronary artery bypass graft(s) without angina pectoris (6) Hypertension Problem: Chronic Qualifiers: Hypertension type: essential hypertension Qualified Code(s): I10 - Essential (primary) hypertension (7) Hyperlipidemia Problem: Chronic Qualifiers: Hyperlipidemia type: mixed hyperlipidemia Qualified Code(s): E78.2 - Mixed hyperlipidemia (8) Hypothyroidism (acquired) Problem: Chronic (9) Obesity Problem: Acute (10) Afib Problem: Chronic Qualifiers: Atrial fibrillation type: paroxysmal Qualified Code(s): I48.0 - Paroxysmal atrial fibrillation (11) Leukocytosis Problem: Acute Qualifiers: Leukocytosis type: unspecified Qualified Code(s): D72.829 - Elevated white blood cell count, unspecified Narrative: due to acute bonchitis and steroids.
[2017-01-27] MEDS ORDERED: predniSONE 20 MG TABLET PO SCH (09:00)
[2017-01-27] MEDS: ISOSORBIDE MONONITRATE 60 MG TAB.SR.24H PO SCH (09:19)
[2017-01-27] MEDS: METOPROLOL TARTRATE 25 MG TABLET PO SCH ×2 (09:20→21:40)
[2017-01-27] MEDS: FUROSEMIDE 80 MG TABLET PO SCH (09:20)
[2017-01-27] MEDS: SOTALOL HCL 80 MG TABLET PO SCH ×2 (09:20→21:39)
[2017-01-27] MEDS: APIXABAN 2.5 MG TABLET PO SCH ×2 (09:21→21:39)
[2017-01-27] MEDS: PARoxetine HCL 20 MG TABLET PO SCH (09:21)
[2017-01-27] MEDS: LISINOPRIL 10 MG TABLET PO SCH (09:21)
[2017-01-27] MEDS: ALBUTEROL SULFATE 2.5 MG/3 ML VIAL.NEB IH PRN (13:20)
[2017-01-27] MEDS: ACETAMINOPHEN 325 MG TABLET PO PRN (13:25)
[2017-01-28] MEDS: ALBUTEROL SULFATE/IPRATROPIUM 3 ML NEBU IH SCH ×4 (00:34→18:25)
[2017-01-28] MEDS: PANTOPRAZOLE SODIUM 40 MG TABLET.EC PO SCH (06:21)
[2017-01-28] MEDS: LEVOTHYROXINE SODIUM 175 MCG TABLET PO SCH (06:22)
[2017-01-28] MEDS: FUROSEMIDE 80 MG TABLET PO SCH (08:48)
[2017-01-28] MEDS: APIXABAN 2.5 MG TABLET PO SCH ×2 (08:48→20:04)
[2017-01-28] MEDS: SOTALOL HCL 80 MG TABLET PO SCH ×2 (08:48→20:04)
[2017-01-28] MEDS: ISOSORBIDE MONONITRATE 60 MG TAB.SR.24H PO SCH (08:48)
[2017-01-28] MEDS: METOPROLOL TARTRATE 25 MG TABLET PO SCH ×2 (08:48→20:03)
[2017-01-28] MEDS: LISINOPRIL 10 MG TABLET PO SCH (08:49)
[2017-01-28] MEDS: PARoxetine HCL 20 MG TABLET PO SCH (08:49)
[2017-01-28] MEDS: predniSONE 20 MG TABLET PO SCH (08:49)
[2017-01-28] MEDS: LEVOFLOXACIN/D5W 750 MG/150 ML BAG IV SCH (11:11)
[2017-01-28 12:02] LABS: Hemoglobin 12.7 gm/dL (12.5-16.0); Mean Cell Volume 90.7 fl (78-100); Mean Corpuscular Hemoglobin 28.8 pg (27-31); Mean Corpuscular Hgb Conc 31.8 g/dl (32-36); Mean Platelet Volume 10.6 fl (6.0-9.5); Neutrophil # 10.8 K/mm3 (1.3-6.0); Neutrophil % 80.5 % (42-75.0); Platelet Count 249 K/mm3 (150-450); Red Blood Count 4.41 M/mm3 (4.2-5.4); Red Cell Distribution Width 14.5 % (11.5-14.0); White Blood Count 13.4 K/mm3 (4.0-10.5)
[2017-01-28 12:22] LABS: Anion Gap 12.2 mmol/L (6.8-13.8); BUN/Creatinine Ratio 40.2 (9.0-21.6); Calcium * 9.9 mg/dL (7.9-10.9); Estimated Creat Clear 26.4; Potassium 4.2 mmol/L (3.4-4.6)
[2017-01-28] MEDS: ACETAMINOPHEN 325 MG TABLET PO PRN ×2 (14:04→20:04)
--- NOTE | 2017-01-28 16:02 | PN ---
Subjective - Date and Time Seen Date: 01/28/17 Time: 15:59 Subjective Narrative: Still coughng , Still wheezing although a little bit better than on admission. Objective - Review of Systems Generalized/Overall Review: Denies: Chills, Fever EENTM: Reports: No Symptoms Reported Respiratory: Reports: Cough, Shortness of Breath, Wheezing Cardiac: Denies: Chest Pain, Edema, Palpitations Abdominal: Denies: Nausea, Vomiting Genitourinary Symptoms: Denies: Urgency, Frequency Musculoskeletal Complaints: Reports: Joint Pain - Vitals Vitals: Last Vital Signs Temp 36.8 C 01/28/17 10:54 Pulse 96 01/28/17 13:41 Resp 20 01/28/17 13:41 BP 148/72 01/28/17 10:54 Pulse Ox 96 01/28/17 13:31 - Abnormal Lab Findings Abnormal Lab Findings: Abnormal Lab Results 01/28/17 01/28/17 Range/Units 11:31 11:48 WBC 13.4 H (4.0-10.5) K/mm3 MCHC 31.8 L (32-36) g/dl RDW 14.5 H (11.5-14.0) % MPV 10.6 H (6.0-9.5) fl Immature Gran % (Auto) 0.90 H (0.001-0.429) % Immature Gran # (Auto) 0.12 H (0.000-0.0310) K/mm3 Neutrophils % 80.5 H (42-75.0) % Lymphocytes % 10.4 L (20-51) % Neutrophils # 10.8 H (1.3-6.0) K/mm3 Lymphocytes # 1.4 L (1.5-3.5) k/mm3 Monocytes # 1.1 H (0.0-1.0) k/mm3 BUN 45 H (3-23) mg/dL Est GFR (Non-Af Amer) 50 L (60-130) mL/min BUN/Creatinine Ratio 40.2 H (9.0-21.6) Random Glucose 159 H (70-110) mg/dL - Exam Constitutional: Present: Alert, Oriented x3, Cooperative, Morbidly obese ENT Exam: Present: hearing grossly normal Neck: Present: supple Breasts: Present: Exam deferred Respiratory: Present: decreased breath sounds, crackles, wheezing Cardiovascular/Chest: Present: regular rate, rhythm, no JVD, no murmur Abdomen: Present: Normal bowel sounds, soft, nontender - although painful when coughing, nondistended Extremity: Present: no pedal edema, no calf tenderness Assessment/Plan - Problems/Diagnosis (1) COPD exacerbation Problem: Acute Narrative: CXR shows worsening atelectasis consider pneumonia. Continue with Levaquin. Will do incentive spirometry with acapella. (2) UTI (urinary tract infection) Problem: Acute Qualifiers: Urinary tract infection type: acute cystitis Hematuria presence: without hematuria Qualified Code(s): N30.00 - Acute cystitis without hematuria (3) COPD (chronic obstructive pulmonary disease) Problem: Chronic Qualifiers: COPD type: unspecified COPD Qualified Code(s): J44.9 - Chronic obstructive pulmonary disease, unspecified (4) Elevated brain natriuretic peptide (BNP) level Problem: Acute (5) CAD (coronary artery disease) Problem: Chronic Qualifiers: Coronary Disease-Associated Artery/Lesion type: bypass graft [place] vs. transplanted heart: [place] heart Associated angina: without angina Qualified Code(s): I25.810 - Atherosclerosis of coronary artery bypass graft(s) without angina pectoris (6) Hypertension Problem: Chronic Qualifiers: Hypertension type: essential hypertension Qualified Code(s): I10 - Essential (primary) hypertension (7) Hyperlipidemia Problem: Chronic Qualifiers: Hyperlipidemia type: mixed hyperlipidemia Qualified Code(s): E78.2 - Mixed hyperlipidemia (8) Hypothyroidism (acquired) Problem: Chronic (9) Obesity Problem: Acute (10) Afib Problem: Chronic Qualifiers: Atrial fibrillation type: paroxysmal Qualified Code(s): I48.0 - Paroxysmal atrial fibrillation (11) Leukocytosis Problem: Acute Qualifiers: Leukocytosis type: unspecified Qualified Code(s): D72.829 - Elevated white blood cell count, unspecified (12) Abdominal pain Problem: Acute Qualifiers: Abdominal location: upper abdomen, unspecified Qualified Code(s): R10.10 - Upper abdominal pain, unspecified Narrative: when coughing. Will start her on Tussinex Penkinetic. She says her allergy to codeine was many years ago and she has taken Vicodin since then and did not have a problem.
[2017-01-28] MEDS: HYDROcodone/CHLORPHEN P-STIREX 5 ML UDC PO PRN (20:04)
[2017-01-29] MEDS: ALBUTEROL SULFATE/IPRATROPIUM 3 ML NEBU IH SCH ×4 (00:05→18:43)
[2017-01-29] MEDS: PANTOPRAZOLE SODIUM 40 MG TABLET.EC PO SCH (06:15)
[2017-01-29] MEDS: LEVOTHYROXINE SODIUM 175 MCG TABLET PO SCH (06:16)
[2017-01-29] MEDS: SOTALOL HCL 80 MG TABLET PO SCH ×2 (08:41→20:51)
[2017-01-29] MEDS: APIXABAN 2.5 MG TABLET PO SCH ×2 (08:41→20:51)
[2017-01-29] MEDS: ISOSORBIDE MONONITRATE 60 MG TAB.SR.24H PO SCH (08:41)
[2017-01-29] MEDS: predniSONE 20 MG TABLET PO SCH (08:42)
[2017-01-29] MEDS: PARoxetine HCL 20 MG TABLET PO SCH (08:42)
[2017-01-29] MEDS: FUROSEMIDE 80 MG TABLET PO SCH (08:42)
[2017-01-29] MEDS: LISINOPRIL 10 MG TABLET PO SCH (08:42)
[2017-01-29] MEDS: METOPROLOL TARTRATE 25 MG TABLET PO SCH ×2 (08:42→20:51)
[2017-01-29] MEDS: HYDROcodone/CHLORPHEN P-STIREX 5 ML UDC PO PRN ×2 (09:01→21:05)
--- NOTE | 2017-01-29 11:31 | PN ---
Subjective - Date and Time Seen Date: 01/29/17 Time: 11:27 Subjective Narrative: Still with SOB and wheezing. CXR showed worsening os atelectais -consider Pneumonia Objective - Review of Systems Generalized/Overall Review: Denies: Chills, Fever EENTM: Reports: No Symptoms Reported Respiratory: Reports: Cough, Shortness of Breath, Wheezing Cardiac: Denies: Chest Pain, Edema, Palpitations Abdominal: Reports: Abdominal Pain - when coughing improved with Tussionex Penkinnetic. Denies: Nausea, Vomiting Genitourinary Symptoms: Denies: Urgency, Frequency Musculoskeletal Complaints: Reports: Joint Pain - Vitals Vitals: Last Vital Signs Temp 36.8 C 01/29/17 11:05 Pulse 74 01/29/17 11:05 Resp 20 01/29/17 11:05 BP 162/78 01/29/17 11:05 Pulse Ox 94 01/29/17 11:05 - Abnormal Lab Findings Abnormal Lab Findings: Abnormal Lab Results 01/28/17 01/28/17 Range/Units 11:31 11:48 WBC 13.4 H (4.0-10.5) K/mm3 MCHC 31.8 L (32-36) g/dl RDW 14.5 H (11.5-14.0) % MPV 10.6 H (6.0-9.5) fl Immature Gran % (Auto) 0.90 H (0.001-0.429) % Immature Gran # (Auto) 0.12 H (0.000-0.0310) K/mm3 Neutrophils % 80.5 H (42-75.0) % Lymphocytes % 10.4 L (20-51) % Neutrophils # 10.8 H (1.3-6.0) K/mm3 Lymphocytes # 1.4 L (1.5-3.5) k/mm3 Monocytes # 1.1 H (0.0-1.0) k/mm3 BUN 45 H (3-23) mg/dL Est GFR (Non-Af Amer) 50 L (60-130) mL/min BUN/Creatinine Ratio 40.2 H (9.0-21.6) Random Glucose 159 H (70-110) mg/dL - Exam Constitutional: Present: Alert, Oriented x3, Cooperative, Morbidly obese ENT Exam: Present: hearing grossly normal Neck: Present: supple Breasts: Present: Exam deferred Respiratory: Present: decreased breath sounds, crackles, wheezing Cardiovascular/Chest: Present: regular rate, rhythm, no JVD, no murmur Abdomen: Present: Normal bowel sounds, soft, nontender, nondistended Extremity: Present: no calf tenderness, pedal edema Assessment/Plan - Problems/Diagnosis (1) COPD exacerbation Problem: Acute Narrative: likely due to Pneumonia than acute bronchitis (2) UTI (urinary tract infection) Problem: Acute Qualifiers: Urinary tract infection type: acute cystitis Hematuria presence: without hematuria Qualified Code(s): N30.00 - Acute cystitis without hematuria Narrative: NG on culture (3) COPD (chronic obstructive pulmonary disease) Problem: Chronic Qualifiers: COPD type: unspecified COPD Qualified Code(s): J44.9 - Chronic obstructive pulmonary disease, unspecified (4) Elevated brain natriuretic peptide (BNP) level Problem: Acute Narrative: likely due to to her COPD. last Echo showed normal EF, mild MR, mild concentricv LVH, RVSP of 30-40 mm Hg (5) CAD (coronary artery disease) Problem: Chronic Qualifiers: Coronary Disease-Associated Artery/Lesion type: bypass graft [place] vs. transplanted heart: [place] heart Associated angina: without angina Qualified Code(s): I25.810 - Atherosclerosis of coronary artery bypass graft(s) without angina pectoris (6) Hypertension Problem: Chronic Qualifiers: Hypertension type: essential hypertension Qualified Code(s): I10 - Essential (primary) hypertension (7) Hyperlipidemia Problem: Chronic Qualifiers: Hyperlipidemia type: mixed hyperlipidemia Qualified Code(s): E78.2 - Mixed hyperlipidemia (8) Hypothyroidism (acquired) Problem: Chronic (9) Obesity Problem: Acute (10) Afib Problem: Chronic Qualifiers: Atrial fibrillation type: paroxysmal Qualified Code(s): I48.0 - Paroxysmal atrial fibrillation (11) Leukocytosis Problem: Acute Qualifiers: Leukocytosis type: unspecified Qualified Code(s): D72.829 - Elevated white blood cell count, unspecified Narrative: Pneumonia and steroids. (12) Abdominal pain Problem: Acute Qualifiers: Abdominal location: upper abdomen, unspecified Qualified Code(s): R10.10 - Upper abdominal pain, unspecified (13) Pneumonia Problem: Acute Qualifiers: Pneumonia type: due to unspecified organism Laterality: left Lung location: unspecified part of lung Qualified Code(s): J18.9 - Pneumonia, unspecified organism Narrative: on day 3 of her levaquin as she receives it q 48 hours.
[2017-01-29] MEDS: ALBUTEROL SULFATE 2.5 MG/3 ML VIAL.NEB IH PRN (12:53)
[2017-01-30] MEDS: ALBUTEROL SULFATE/IPRATROPIUM 3 ML NEBU IH SCH ×4 (00:07→18:06)
[2017-01-30 05:47] LABS: Hematocrit 42.9 % (37.0-47.0); Hemoglobin 13.4 gm/dL (12.5-16.0); Mean Cell Volume 90.9 fl (78-100); Mean Corpuscular Hemoglobin 28.4 pg (27-31); Mean Corpuscular Hgb Conc 31.2 g/dl (32-36); Mean Platelet Volume 10.3 fl (6.0-9.5); Neutrophil # 8.9 K/mm3 (1.3-6.0); Neutrophil % 70.2 % (42-75.0); Platelet Count 284 K/mm3 (150-450); Red Blood Count 4.72 M/mm3 (4.2-5.4); Red Cell Distribution Width 14.3 % (11.5-14.0); White Blood Count 12.6 K/mm3 (4.0-10.5)
[2017-01-30 05:59] LABS: Anion Gap 9.6 mmol/L (6.8-13.8); BUN/Creatinine Ratio 36.2 (9.0-21.6); Calcium * 10.4 mg/dL (7.9-10.9); Carbon Dioxide 34.7 mmol/L (24-32.6); Estimated Creat Clear 28.2; Potassium 4.3 mmol/L (3.4-4.6)
[2017-01-30] MEDS: LEVOTHYROXINE SODIUM 175 MCG TABLET PO SCH (06:25)
[2017-01-30] MEDS: PANTOPRAZOLE SODIUM 40 MG TABLET.EC PO SCH (06:25)
[2017-01-30] MEDS ORDERED: FUROSEMIDE 10 MG/ML VIAL IV ONE (07:46)
--- NOTE | 2017-01-30 08:41 | PN ---
Progess Note - Interim Narrative: 01/30/17 08:40 Still coughing and with crackles and wheezing on auscultation. JULIETTE ferguson
[2017-01-30] MEDS: PARoxetine HCL 20 MG TABLET PO SCH (08:42)
[2017-01-30] MEDS: APIXABAN 2.5 MG TABLET PO SCH ×2 (08:43→20:19)
[2017-01-30] MEDS: FUROSEMIDE 80 MG TABLET PO SCH (08:43)
[2017-01-30] MEDS: METOPROLOL TARTRATE 25 MG TABLET PO SCH ×2 (08:43→20:20)
[2017-01-30] MEDS: SOTALOL HCL 80 MG TABLET PO SCH ×2 (08:43→20:18)
[2017-01-30] MEDS: ISOSORBIDE MONONITRATE 60 MG TAB.SR.24H PO SCH (08:44)
[2017-01-30] MEDS: LISINOPRIL 10 MG TABLET PO SCH (08:44)
[2017-01-30] MEDS: predniSONE 20 MG TABLET PO SCH (08:44)
[2017-01-30] MEDS: LEVOFLOXACIN/D5W 750 MG/150 ML BAG IV SCH (11:28)
[2017-01-30] MEDS: ACETAMINOPHEN 325 MG TABLET PO PRN (16:32)
--- NOTE | 2017-01-30 17:13 | PN ---
Subjective - Date and Time Seen Date: 01/30/17 Time: 17:09 Subjective Narrative: Has been urinating a lot with extra dose of lasix.. Still with wheezing and crackles. Objective - Review of Systems Generalized/Overall Review: Denies: Chills, Fever EENTM: Reports: No Symptoms Reported Respiratory: Reports: Cough, Shortness of Breath, Wheezing Cardiac: Reports: Edema. Denies: Chest Pain, Palpitations Abdominal: Denies: Nausea, Vomiting Genitourinary Symptoms: Denies: Urgency, Frequency Musculoskeletal Complaints: Reports: Joint Pain - Vitals Vitals: Last Vital Signs Temp 36.6 C 01/30/17 14:35 Pulse 58 L 01/30/17 14:35 Resp 20 01/30/17 14:35 BP 134/48 01/30/17 14:35 Pulse Ox 94 01/30/17 14:35 - Abnormal Lab Findings Abnormal Lab Findings: Abnormal Lab Results 01/30/17 01/30/17 Range/Units 05:38 05:38 WBC 12.6 H (4.0-10.5) K/mm3 MCHC 31.2 L (32-36) g/dl RDW 14.3 H (11.5-14.0) % MPV 10.3 H (6.0-9.5) fl Immature Gran % (Auto) 0.70 H (0.001-0.429) % Immature Gran # (Auto) 0.09 H (0.000-0.0310) K/mm3 Neutrophils # 8.9 H (1.3-6.0) K/mm3 Monocytes # 1.1 H (0.0-1.0) k/mm3 Sodium 143 H (132-142) mmol/L Plasma Sodium 143 H (130-142) mmol/L Carbon Dioxide 34.7 H (24-32.6) mmol/L BUN 38 H (3-23) mg/dL Est GFR (Non-Af Amer) 53 L (60-130) mL/min BUN/Creatinine Ratio 36.2 H (9.0-21.6) Random Glucose 116 H (70-110) mg/dL - Exam Constitutional: Present: Alert, Oriented x3, Cooperative ENT Exam: Present: hearing grossly normal Neck: Present: supple Breasts: Present: Exam deferred Respiratory: Present: decreased breath sounds, crackles, wheezing Cardiovascular/Chest: Present: regular rate, rhythm, no JVD, no murmur Abdomen: Present: Normal bowel sounds, soft, nontender, nondistended Extremity: Present: no calf tenderness, pedal edema Assessment/Plan - Problems/Diagnosis (1) Pneumonia Problem: Acute Qualifiers: Pneumonia type: due to unspecified organism Laterality: left Lung location: unspecified part of lung Qualified Code(s): J18.9 - Pneumonia, unspecified organism Narrative: CXR showed worsening atelctaisis consider pneumonia. Had 4 doses of IV levaquin. (2) COPD exacerbation Problem: Acute Narrative: due to acute bronchitis vs pneumonia. (3) UTI (urinary tract infection) Problem: Acute Qualifiers: Urinary tract infection type: acute cystitis Hematuria presence: without hematuria Qualified Code(s): N30.00 - Acute cystitis without hematuria (4) COPD (chronic obstructive pulmonary disease) Problem: Chronic Qualifiers: COPD type: unspecified COPD Qualified Code(s): J44.9 - Chronic obstructive pulmonary disease, unspecified (5) Elevated brain natriuretic peptide (BNP) level Problem: Acute (6) CAD (coronary artery disease) Problem: Chronic Qualifiers: Coronary Disease-Associated Artery/Lesion type: bypass graft [place] vs. transplanted heart: [place] heart Associated angina: without angina Qualified Code(s): I25.810 - Atherosclerosis of coronary artery bypass graft(s) without angina pectoris (7) Hypertension Problem: Chronic Qualifiers: Hypertension type: essential hypertension Qualified Code(s): I10 - Essential (primary) hypertension (8) Hyperlipidemia Problem: Chronic Qualifiers: Hyperlipidemia type: mixed hyperlipidemia Qualified Code(s): E78.2 - Mixed hyperlipidemia (9) Hypothyroidism (acquired) Problem: Chronic (10) Obesity Problem: Acute (11) Afib Problem: Chronic Qualifiers: Atrial fibrillation type: paroxysmal Qualified Code(s): I48.0 - Paroxysmal atrial fibrillation (12) Leukocytosis Problem: Acute Qualifiers: Leukocytosis type: unspecified Qualified Code(s): D72.829 - Elevated white blood cell count, unspecified (13) Abdominal pain Problem: Acute Qualifiers: Abdominal location: upper abdomen, unspecified Qualified Code(s): R10.10 - Upper abdominal pain, unspecified
[2017-01-30] MEDS: ACETYLCYSTEINE 200 MG/ML VIAL IH SCH (19:56)
[2017-01-30] MEDS: HYDROcodone/CHLORPHEN P-STIREX 5 ML UDC PO PRN (20:24)
[2017-01-31] MEDS: ALBUTEROL SULFATE/IPRATROPIUM 3 ML NEBU IH SCH ×3 (00:36→13:06)
[2017-01-31] MEDS: ACETYLCYSTEINE 200 MG/ML VIAL IH SCH ×3 (00:37→13:10)
[2017-01-31] MEDS: PANTOPRAZOLE SODIUM 40 MG TABLET.EC PO SCH (07:04)
[2017-01-31] MEDS: ACETAMINOPHEN 325 MG TABLET PO PRN (07:04)
[2017-01-31] MEDS: LEVOTHYROXINE SODIUM 175 MCG TABLET PO SCH (07:04)
[2017-01-31] MEDS ORDERED: FUROSEMIDE 10 MG/ML VIAL IV ONE (07:26)
[2017-01-31] MEDS ORDERED: POTASSIUM CHLORIDE 20 MEQ TABLET.SA PO ONE (07:26)
[2017-01-31] MEDS ORDERED: FUROSEMIDE 40 MG TABLET PO ONE (07:57)
--- NOTE | 2017-01-31 08:06 | PN ---
Progess Note - Interim Narrative: 01/31/17 08:04 Feels better this morning. Had coughing productive of phlegm with mucomyst. Less wheezy and less crackles. Does not want IV access . Will give extra dose of Furosemide PO. Will change her Levaquin to oral. Possible discharge after lunch.
[2017-01-31 08:21] LABS: Hematocrit 44.2 % (37.0-47.0); Mean Cell Volume 90.2 fl (78-100); Mean Corpuscular Hemoglobin 28.6 pg (27-31); Mean Corpuscular Hgb Conc 31.7 g/dl (32-36); Mean Platelet Volume 9.9 fl (6.0-9.5); Neutrophil % 70.7 % (42-75.0); Platelet Count 318 K/mm3 (150-450); Red Cell Distribution Width 14.2 % (11.5-14.0); White Blood Count 15.5 K/mm3 (4.0-10.5)
--- NOTE | 2017-01-31 08:28 | DS ---
(1) Pneumonia Diagnosis(s): atelectasis consider Pneumonia on CXR. treated with Levaquin. Problem: Acute Qualifiers: Pneumonia type: due to unspecified organism Laterality: left Lung location: unspecified part of lung Qualified Code(s): J18.9 - Pneumonia, unspecified organism (2) COPD exacerbation Diagnosis(s): atelectais consider Pneumonia.clinically improved Problem: Acute (3) UTI (urinary tract infection) Diagnosis(s): UTI by UA but NG on C & S. Problem: Acute Qualifiers: Urinary tract infection type: acute cystitis Hematuria presence: without hematuria Qualified Code(s): N30.00 - Acute cystitis without hematuria (4) COPD (chronic obstructive pulmonary disease) Problem: Chronic Qualifiers: COPD type: unspecified COPD Qualified Code(s): J44.9 - Chronic obstructive pulmonary disease, unspecified (5) Elevated brain natriuretic peptide (BNP) level Diagnosis(s): likely due to COPD exacerbation . Problem: Acute (6) CAD (coronary artery disease) Problem: Chronic Qualifiers: Coronary Disease-Associated Artery/Lesion type: bypass graft [place] vs. transplanted heart: [place] heart Associated angina: without angina Qualified Code(s): I25.810 - Atherosclerosis of coronary artery bypass graft(s) without angina pectoris (7) Hypertension Problem: Chronic Qualifiers: Hypertension type: essential hypertension Qualified Code(s): I10 - Essential (primary) hypertension (8) Hyperlipidemia Problem: Chronic Qualifiers: Hyperlipidemia type: mixed hyperlipidemia Qualified Code(s): E78.2 - Mixed hyperlipidemia (9) Hypothyroidism (acquired) Problem: Chronic (10) Obesity Problem: Acute (11) Afib Problem: Chronic Qualifiers: Atrial fibrillation type: paroxysmal Qualified Code(s): I48.0 - Paroxysmal atrial fibrillation (12) Leukocytosis Diagnosis(s): due to atelectasis/peumonia and steroids . % Neutrophils WNL. Problem: Acute Qualifiers: Leukocytosis type: unspecified Qualified Code(s): D72.829 - Elevated white blood cell count, unspecified (13) Abdominal pain Diagnosis(s): due to muscle strain form coughing Problem: Acute Qualifiers: Abdominal location: upper abdomen, unspecified Qualified Code(s): R10.10 - Upper abdominal pain, unspecified Description of Stay: Kina Lorenzana, is an 81-year-old white female, with previous medical history of coronary artery disease status post CABG, hypertension, hyperlipidemia, hypothyroidism, COPD, atrial fibrillation, who was admitted on 01/24/2017 for coug and increasing SOB. 5 days prior to admission, she started having cough associated with mild shortness of breath. One day prior to admission her shortness of breath got worst and her cough was associated with brownish yellowish phlegm. She denied fever and chills with it but admits to wheezing. She denied any paroxysmal nocturnal dyspnea or orthopnea. She did have a little bit of weight gain however did not notice any edema. She went to the [facility] today and was sent to the emergency room where she patient's chest x-ray showed no acute cardiopulmonary findings enlarged heart, right paratracheal prominence of uncertain etiology. Her EKG showed normal sinus rhythm came. Her white blood cell count was elevated at 12.2. Her urinalysis showed urinary tract infection. She was admitted for COPD exacerbation. She was started on IV Levaquin, IV solumedrol, breathing treatments. Due to her Cr clearance , Her IV lecquin was given q 48 hours. She had a slow recovery. She is still wheezy and still with some crackles but clinically better. She does not want an IV access replaced. will discharge her on PO Levaquin and Prednisone along with her breathing treatments. Procedures Performed: none Discharge Disposition: Home self care Disposition: Home self-care Condition: Fair Discharge Activity: Activity as tolerated Discharge Diet: Low salt, Low fat/chol Referrals: Mic Urrutia MD [Primary Care Provider] - Additional Patient Instructions (free text): [facility] Courtesy visit. Call report and fax orders upon discharge. Follow up with PCP this Friday.. Prescriptions (Any new or edited meds): Acetaminophen [Tylenol] 650 mg PO Q6H PRN #60 tablet PRN Reason: Mild Pain Furosemide [Lasix] 80 mg PO DAILY #60 tablet HYDROcodone/CHLORPHEN P-STIREX [Tussionex Pennkinetic Suspension] 5 ml PO Q12H PRN #60 udc PRN Reason: Cough Levofloxacin [Levaquin] 250 mg PO DAILY #10 tablet guaiFENesin [Mucinex] 1,200 mg PO BID #14 tablet.sa predniSONE [Prednisone] 40 mg PO DAILY #7 tablet Complete Home Medications List: Complete Home Medication List: Coenzyme Q10/l-Carnitine [Q-Sorb Co Q-10 Plus 100 mg] 200 mg PO DAILY 06/17/13 Isosorbide Mononitrate [Imdur] 60 mg PO DAILY 06/17/13 Levothyroxine Sodium [Synthroid] 175 mcg PO DAILY 06/17/13 Lisinopril [Zestril] 10 mg PO DAILY 06/17/13 Metoprolol Tartrate [Lopressor] 75 mg PO BID 06/17/13 Nitroglycerin 0.4 mg SL PRN PRN 06/17/13 Omeprazole [Prilosec] 40 mg PO DAILY 01/21/14 Albuterol Sulfate [Proair Hfa] 8.5 gm IH PRN PRN 01/24/17 Apixaban [Eliquis] 5 mg PO BID 01/24/17 Ipratropium/Albuterol Sulfate [Iprat-Albut 0.5-3(2.5) mg/3 ml] 3 ml IH QID 01/24 PARoxetine HCL [Paxil] 20 mg PO DAILY 01/24/17 Sotalol HCl [Betapace] 80 mg PO BID 01/24/17 Acetaminophen [Tylenol] 650 mg PO Q6H PRN #60 tablet 01/31/17 Furosemide [Lasix] 80 mg PO DAILY #60 tablet 01/31/17 HYDROcodone/CHLORPHEN P-STIREX [Tussionex Pennkinetic Suspension] 5 ml PO Q12H PRN #60 udc 01/31/17 Levofloxacin [Levaquin] 250 mg PO DAILY #10 tablet 01/31/17 guaiFENesin [Mucinex] 1,200 mg PO BID #14 tablet.sa 01/31/17 predniSONE [Prednisone] 40 mg PO DAILY #7 tablet 01/31/17
[2017-01-31 08:32] LABS: Anion Gap 10.2 mmol/L (6.8-13.8); BUN/Creatinine Ratio 37.1 (9.0-21.6); Calcium * 10.1 mg/dL (7.9-10.9); Carbon Dioxide 33.9 mmol/L (24-32.6); Estimated Creat Clear 25.5; Potassium 4.1 mmol/L (3.4-4.6)
[2017-01-31] MEDS: predniSONE 20 MG TABLET PO SCH (08:40)
[2017-01-31] MEDS: METOPROLOL TARTRATE 25 MG TABLET PO SCH (08:41)
[2017-01-31] MEDS: SOTALOL HCL 80 MG TABLET PO SCH (08:41)
[2017-01-31] MEDS: APIXABAN 2.5 MG TABLET PO SCH (08:41)
[2017-01-31] MEDS: ISOSORBIDE MONONITRATE 60 MG TAB.SR.24H PO SCH (08:41)
[2017-01-31] MEDS: FUROSEMIDE 80 MG TABLET PO SCH (08:41)
[2017-01-31] MEDS: LISINOPRIL 10 MG TABLET PO SCH (08:41)
[2017-01-31] MEDS: PARoxetine HCL 20 MG TABLET PO SCH (08:41)
[2017-01-31] MEDS: HYDROcodone/CHLORPHEN P-STIREX 5 ML UDC PO PRN (08:48)
[2017-01-31 11:12] VITALS: BP 126/55
== END 2017-01-31 14:20 | disposition home or self-care (01) | DRG 190 ==
LOC: ER 11:21 → MS 12:52 → OBSVTOIN 01-25 09:44
PROVIDERS: ADMIT Nurse Practitioner Critical Care Medicine; ATTEND Internal Medicine
DX: J44.0 Chronic obstructive pulmonary disease with (acute) lower respiratory infection (principal); J18.9 Pneumonia, unspecified organism; N30.00 Acute cystitis without hematuria; I25.810 Atherosclerosis of coronary artery bypass graft(s) without angina pectoris; J44.1 Chronic obstructive pulmonary disease with (acute) exacerbation; D72.829 Elevated white blood cell count, unspecified; I10 Essential (primary) hypertension; E78.2 Mixed hyperlipidemia; E03.9 Hypothyroidism, unspecified; I48.0 Paroxysmal atrial fibrillation; Z95.1 Presence of aortocoronary bypass graft; Z79.01 Long term (current) use of anticoagulants; Z87.891 Personal history of nicotine dependence
CPT/HCPCS: 36415; 71020; 80048; 80053; 81001; 83880; 84484; 85025; 87086; 93005; 94640; 94760; 96365; 96375; 97110; 97116; 97161; 97165; 99284; G0378; G8978; G8979; G8980